=== PATIENT | female | born 1945 | race Caucasian/White ===

== ENCOUNTER 2017-04-11 17:01 | Emergency (ER) | payer MEDICARE ==
[2017-04-11 18:00] LABS: #Basophils 0.1 thou/uL (0.0-0.2); #Eosinphils 0.5 thou/uL (0.0-0.7); #Lymphocytes 2.6 thou/uL (1.20-3.40); #Monocytes 0.6 thou/uL (0.11-0.59); #Neutrophils 4.9 thou/uL (1.40-6.50); %Eosinophils 6.1 % (0.0-10.0); %Lymphocytes 30.4 % (21.0-51.0); %Monocytes 6.4 % (0.0-10.0); Hematocrit 39.5 % (36.0-47.0); Mean Platelet Volume 6.7 fL (7.4-10.4); Red Blood Cell (RBC) Count 4.58 mill/uL (4.20-5.40); White Blood Cell (WBC) Count 8.6 thou/uL (4.8-10.8)
[2017-04-11 18:18] LABS: Chloride 102 mmol/L (98-107)
[2017-04-11 18:19] LABS: ALT (SGPT) 24 U/L (8-55); AST (SGOT) 19 U/L (5-34); Alkaline Phosphatase 67 U/L (40-150); Anion Gap 15 mmol/L (10-20); BUN (Urea Nitrogen) 16 mg/dL (9.8-20.1); Bilirubin, Total 0.4 mg/dL (0.2-1.2); Calc. Creatinine Clearance 0 mL/min (70-130); Calcium 10.6 mg/dL (7.8-10.44); Carbon Dioxide 26 mmol/L (23-31); Estimated GFR-MDRD 64; Globulin 3.3 g/dL (2.4-3.5); Protein, Total 7.6 g/dL (6.0-8.3)
[2017-04-11 18:20] LABS: Troponin I Less than 0.010 ng/mL (< 0.028)
--- NOTE | 2017-04-11 18:24 | ULT ---
RIGHT LOWER EXTREMITY VENOUS DOPPLER: Date: 04/11/17 PROVIDED CLINICAL HISTORY: Right calf pain. FINDINGS: Marx scale and color Doppler sonography with spectral analysis performed of the right common femoral, femoral, popliteal, posterior tibial, greater saphenous, and profunda femoral veins, demonstrating a normal sonographic appearance to each. IMPRESSION: No sonographic evidence for right lower extremity deep venous thrombosis. POS: [facility]
[2017-04-11] MEDS ORDERED: Amlodipine 5 MG TAB ONE (18:37)
--- NOTE | 2017-04-16 11:40 | EKG ---
Test Reason : Blood Pressure : / mmHG Vent. Rate : 064 BPM Atrial Rate : 064 BPM P-R Int : 166 ms QRS Dur : 082 ms QT Int : 392 ms P-R-T Axes : 062 026 067 degrees QTc Int : 404 ms Normal sinus rhythm with sinus arrhythmia Normal ECG Confirmed by SOPHIE BOUCHER D.O. ([id number]), magazine editor MATA HUFF ([id number]) on 04/16/2017 11:40:18 AM Referred By: Confirmed By:SOPHIE BOUCHER D.O.
== END 2017-04-11 18:50 | disposition home or self-care (01) ==
LOC: SCSER 17:01
DX: I10 Essential (primary) hypertension (principal); M79.604 Pain in right leg; E11.9 Type 2 diabetes mellitus without complications; E78.5 Hyperlipidemia, unspecified; Z79.84 Long term (current) use of oral hypoglycemic drugs; Z79.899 Other long term (current) drug therapy
CPT/HCPCS: 80053; 82553; 83880; 84484; 85025; 93005

== ENCOUNTER 2017-04-12 02:55 | Outpatient (CLI) | payer MEDICARE | END 2017-04-12 02:56 | disposition home or self-care (01) | LOC: BICRAD 02:55 | PROVIDERS: ATTEND Internal Medicine | DX: M25.561 Pain in right knee (principal) ==

== ENCOUNTER 2024-02-09 06:04 | Day surgery (SDC) | payer MEDICARE ==
[2024-02-08 13:06] VITALS: BMI 23.4
[~2024-02-09 06:04] MED LIST: EPINEPHrine 0.3 MG in Ophthalmic Irrigation Solution 500 ML IRR SCH
[2024-02-09] MEDS ORDERED: Cyclopentolate 1% Opth Drop 2 ML BOT ONE (06:16)
[2024-02-09] MEDS ORDERED: PHENYLephrine 2.5% Ophth Soln 15 ml Bottle ONE (06:16)
[2024-02-09] MEDS ORDERED: PROPOFOL 20 ML ONE (06:59)
[2024-02-09] MEDS ORDERED: Midazolam HCl 2 mg/2 ml Vial ONE (07:02)
[2024-02-09] MEDS ORDERED: fentaNYL 50 mcg/mL 1 mL Vial ONE (07:02)
[2024-02-09] MEDS ORDERED: TISSUEBLUE 0.5 ML SYRINGE IO ONE (07:12)
[2024-02-09] MEDS ORDERED: CEFAZOLIN 1 GM VIAL ONE (07:12)
[2024-02-09] MEDS ORDERED: Triamcinolone 40 MG/ML VIAL ONE (07:12)
[2024-02-09] MEDS ORDERED: Lidocaine 4% PF 5 ML AMP ONE (07:12)
[2024-02-09] MEDS ORDERED: Lidocaine 1% PF 5 ML VIAL ONE (07:12)
[2024-02-09] MEDS ORDERED: Maxitrol 0.1% Opth Oint 3.5 GM TUBE ONE (07:12)
[2024-02-09] MEDS ORDERED: Bupivacaine 0.75% 10 ML VIAL ONE (07:12)
== END 2024-02-09 09:55 | disposition home or self-care (01) ==
LOC: SDC 06:04
PROVIDERS: ATTEND Ophthalmology Retina Specialist
PROC: 08T53ZZ Resection of Left Vitreous, Percutaneous Approach (ICD-10-PCS; principal; 2024-02-09)
DX: H43.822 Vitreomacular adhesion, left eye (principal)
CPT/HCPCS: 67041; J0171; J0690; J2250; J2704; J3010; J3301; J3490